=== PATIENT | female | born 1960 | race American Indian/Alaskan Native ===

== ENCOUNTER 2017-11-13 23:08 | Emergency (ER) | payer OTHER ==
[2017-11-14] MEDS ORDERED: CATAPRES PO ONE ×2 (00:15→01:34)
--- NOTE | 2017-11-14 00:22 | Emergency Department Report ---
ED General Adult HPI - General Chief complaint: High BP Stated complaint: PRESSURE UP Time Seen by Provider: 11/14/17 00:06 Source: patient Mode of arrival: Ambulatory Limitations: No Limitations - History of Present Illness Initial comments: Patient is a 57-year-old female who states that her blood pressures been elevated recently. Patient went to see a lead nurse yesterday and blood pressure was elevated at that time. Patient took her blood pressures at night it was was 96 systolic. Patient's only symptoms she states in the evenings sometimes she'll have some mild tightness around her bilateral eyebrows. Patient is denying any overt headache nausea vomiting chest pain shortness of breath decreased urination at this time. The patient's blood pressure regimen was changed in August of this year. Patient was on valsartan hydrochlorothiazide 160?12.5 mg. This was changed because the patient's potassium levels were starting to decrease. Patient was switched to Diovan 320 mg. - Related Data Home Medications Medication Instructions Recorded Confirmed Last Taken Acetaminophen/Chlorpheniramine 07/29/14 07/29/14 07/28/14 [Coricidin Hbp Cold & Flu] Oseltamivir [Tamiflu] 75 mg PO QDAY 07/29/14 07/29/14 07/28/14 Valsartan/Hydrochlorothiazide 1 PO DAILY 07/29/14 07/29/14 07/28/14 [Valsartan-Hctz 160-12.5 mg] Previous Rx's Medication Instructions Recorded Last Taken Type Azithromycin [Zithromax Z-GIANFRANCO] 250 mg PO DAILY #1 pkg 07/29/14 Unknown Rx Loratadine [Claritin] 10 mg PO DAILY #30 tablet 07/29/14 Unknown Rx Promethazine /Codeine 5 ml PO Q6H PRN #150 ml 07/29/14 Unknown Rx [Phenergan/Codeine 6.25-10 mg/5 ml] Amlodipine Besylate [Norvasc] 2.5 mg PO DAILY #30 tab 11/14/17 Unknown Rx Allergies Allergy/AdvReac Type Severity Reaction Status Date / Time codeine AdvReac Nausea Verified 07/29/14 08:42 ED Review of Systems ROS: Stated complaint: PRESSURE UP Other details as noted in HPI Comment: Unobtainable due to pts medical conditions ED Past Medical Hx - Past Medical History Previous Medical History?: Yes Hx Hypertension: Yes - Surgical History Past Surgical History?: Yes Hx Cholecystectomy: Yes Additional Surgical History: fibroids - Social History Smoking Status: Never Smoker Substance Use Type: None - Medications Home Medications: Home Medications Medication Instructions Recorded Confirmed Last Taken Type Acetaminophen/Chlorpheniramine 07/29/14 07/29/14 07/28/14 History [Coricidin Hbp Cold & Flu] Azithromycin [Zithromax Z-GIANFRANCO] 250 mg PO DAILY #1 pkg 07/29/14 Unknown Rx Loratadine [Claritin] 10 mg PO DAILY #30 tablet 07/29/14 Unknown Rx Oseltamivir [Tamiflu] 75 mg PO QDAY 07/29/14 07/29/14 07/28/14 History Promethazine /Codeine 5 ml PO Q6H PRN #150 ml 07/29/14 Unknown Rx [Phenergan/Codeine 6.25-10 mg/5 ml] Valsartan/Hydrochlorothiazide 1 PO DAILY 07/29/14 07/29/14 07/28/14 History [Valsartan-Hctz 160-12.5 mg] Amlodipine Besylate [Norvasc] 2.5 mg PO DAILY #30 tab 11/14/17 Unknown Rx ED Physical Exam - General Limitations: No Limitations General appearance: alert, in no apparent distress - Head Head exam: Present: atraumatic, normocephalic - Eye Eye exam: Present: normal appearance - ENT ENT exam: Present: mucous membranes moist - Neck Neck exam: Present: normal inspection - Respiratory Respiratory exam: Present: normal lung sounds bilaterally. Absent: respiratory distress, wheezes, rales, rhonchi - Cardiovascular Cardiovascular Exam: Present: regular rate, normal rhythm, normal heart sounds. Absent: systolic murmur, diastolic murmur, rubs, gallop - GI/Abdominal GI/Abdominal exam: Present: soft, normal bowel sounds. Absent: distended, tenderness, guarding, rebound - Extremities Exam Extremities exam: Present: normal inspection - Back Exam Back exam: Present: normal inspection - Neurological Exam Neurological exam: Present: alert, oriented X3 - Psychiatric Psychiatric exam: Present: normal affect, normal mood - Skin Skin exam: Present: warm, dry, intact, normal color. Absent: rash ED Course Vital Signs 11/14/17 11/14/17 11/14/17 01:22 01:24 02:21 Blood Pressure 183/96 Blood Pressure 183/96 156/91 [Left] ED Medical Decision Making - Medical Decision Making Patient was given 0.2 Catapres and blood pressure did decrease to 155 systolic. Patient was doing well on dual medication therapy. Patient is just on Diovan at this time. Norvasc 5 mg twice a day added to her regimen to see if this will help control her blood pressure better. Critical care attestation.: If time is entered above; I have spent that time in minutes in the direct care of this critically ill patient, excluding procedure time. ED Disposition Clinical Impression: Hypertension Qualifiers: Hypertension type: unspecified Qualified Code(s): I10 - Essential (primary) hypertension Disposition: TO HOME OR SELFCARE Is pt being admited?: No Does the pt Need Aspirin: No Condition: Stable Instructions: Hypertension (ED) Additional Instructions: Is continue to take the Diovan 320 mg as well as the Norvasc 2.5 mg as prescribed today. Please have your blood pressure rechecked in approximately one week. Prescriptions: Amlodipine Besylate [Norvasc] 2.5 mg PO DAILY #30 tab Referrals: MATTI PAYNE MD [Staff Physician] - 3-5 Days
[2017-11-14 02:22] VITALS: BP 156/91
== END 2017-11-14 02:51 | disposition home or self-care (01) ==
LOC: ED 23:08
DX: I10 Essential (primary) hypertension (principal); Z88.5 Allergy status to narcotic agent; Z90.49 Acquired absence of other specified parts of digestive tract
CPT/HCPCS: 99282